=== PATIENT | female | born 1930 | race Asian ===

== ENCOUNTER 2018-01-08 16:55 | Emergency (ER) | payer MEDICARE, OTHER ==
[~2018-01-08] VITALS: Ht 154.9 cm; Wt 50.0 kg
[~2018-01-08 16:55] MED LIST: ASPI-825 PO; DESI10 PO; EZET10 PO; HYDR200T4 PO; INDO25CA16 PO; MAGN400T6 PO; MELO-106 PO; MULT1TAB PO; OLME1TAB10 PO; TOPI25 PO
[2018-01-08] MEDS ORDERED: CITA10TA68 PO (17:33)
[2018-01-08] MEDS ORDERED: CELE200 PO (17:33)
[2018-01-08] MEDS ORDERED: FERR-89 PO (17:33)
[2018-01-08] MEDS ORDERED: OMEP20 PO (17:33)
[2018-01-08] MEDS ORDERED: OLME20TA22 PO (17:33)
[2018-01-08 19:02] VITALS: BP 108/70
[2018-01-08] MEDS ORDERED: LIDOCAINE HCL 5% TRANSDERMAL PATCH TD ONE (19:30)
== END 2018-01-08 20:15 | disposition home or self-care (01) ==
LOC: EMS 16:55
DX: M54.5 Low back pain (principal); G89.29 Other chronic pain; E11.9 Type 2 diabetes mellitus without complications; E78.00 Pure hypercholesterolemia, unspecified; I10 Essential (primary) hypertension; G43.909 Migraine, unspecified, not intractable, without status migrainosus
CPT/HCPCS: 99283

== ENCOUNTER 2019-03-20 18:51 | Emergency (ER) | payer MEDICARE, OTHER ==
[~2019-03-20] VITALS: Ht 149.9 cm; Wt 57.0 kg
[~2019-03-20 18:51] MED LIST changes: +CELE200 PO; +CITA10TA68 PO; -DESI10 PO; -EZET10 PO; +EZET10TA13 PO; +FERR-89 PO; -HYDR200T4 PO; -INDO25CA16 PO; -MAGN400T6 PO; -MELO-106 PO; -MULT1TAB PO; -OLME1TAB10 PO; +OLME20TA22 PO; +OMEP20 PO; -TOPI25 PO
[2019-03-20 21:40] VITALS: BP 160/85
== END 2019-03-20 21:54 | disposition home or self-care (01) ==
LOC: EMS 18:55
DX: S00.33XA Contusion of nose, initial encounter (principal); S00.83XA Contusion of other part of head, initial encounter; G43.909 Migraine, unspecified, not intractable, without status migrainosus; I10 Essential (primary) hypertension; E78.00 Pure hypercholesterolemia, unspecified; E11.9 Type 2 diabetes mellitus without complications; Z79.82 Long term (current) use of aspirin; W18.09XA Striking against other object with subsequent fall, initial encounter; Y93.89 Activity, other specified; Y92.89 Other specified places as the place of occurrence of the external cause; Y99.8 Other external cause status
CPT/HCPCS: 70450; 70486; 72125

== ENCOUNTER → 2019-06-03 | Outpatient (CLI) | payer MEDICARE, OTHER | END | disposition home or self-care (01) | LOC: RADMN 08:53 | PROVIDERS: ATTEND Internal Medicine | DX: I67.2 Cerebral atherosclerosis (principal); I65.23 Occlusion and stenosis of bilateral carotid arteries; Z91.81 History of falling | CPT/HCPCS: 70450 ==